=== PATIENT | female | born 1985 | race Caucasian/White ===

== ENCOUNTER 2017-02-09 10:19 | Emergency (ER) | payer OTHER ==
[2017-02-09 10:28] VITALS: O2SAT 100
[2017-02-09] MEDS ORDERED: Sodium Chloride 0.9% 1,000 ML IV ONE (10:49)
[2017-02-09] MEDS ORDERED: Sodium Chloride 0.9% 1,000 ML ONE ×2 (10:58→11:02)
[2017-02-09 10:59] LABS: RBC URINE 1 /hpf (0-3); URINE BILIRUBIN NEGATIVE (NEGATIVE); URINE BLOOD NEGATIVE (NEGATIVE); URINE COLOR Yellow (YELLOW); URINE GLUCOSE (UA) NORMAL (Normal); URINE KETONE NEGATIVE (NEGATIVE); URINE LEUKOCYTE ESTERASE NEG Leu/uL (Negative); URINE PROTEIN NEGATIVE (NEGATIVE); URINE UROBILINOGEN NORMAL mg/dL (0.2-1.0); WBC URINE 1 /hpf (0-5)
--- NOTE | 2017-02-09 11:03 | C.PDOC ---
History Of Present Illness Patient is a 31 year old female, with no significant past medical history, A1, presents to Emergency Department for evaluation of lower abdominal pain for the past several months. As per , patient has had the abdominal pain intermittently since the miscarriage in July this year. Patient states that pain is worse on right side since yesterday. Denies nausea, vomiting, diarrhea, vaginal discharge, dysuria, hematuria, or fever. Time Seen by Provider: 02/09/17 10:43 Chief Complaint (Nursing): Abdominal Pain History Per: Patient History/Exam Limitations: no limitations Onset/Duration Of Symptoms: Days Current Symptoms Are (Timing): Still Present Location Of Pain/Discomfort: Suprapubic Radiation Of Pain To:: None Quality Of Discomfort: "Pain" Associated Symptoms: denies: Loss Of Appetite, Back Pain, Chest Pain, Urinary Symptoms Exacerbating Factors: None Alleviating Factors: None Last Bowel Movement: Yesterday Recent travel outside of the [place]: No Additional History Per: Patient Abnormal Vaginal Bleeding: No Last Menstral Period: 01/19/2017 Past Medical History Reviewed: Historical Data, Nursing Documentation, Vital Signs Vital Signs: Last Vital Signs Temp 98 F 02/09/17 12:50 Pulse 80 02/09/17 12:50 Resp 16 02/09/17 12:50 BP 101/62 02/09/17 12:50 Pulse Ox 100 02/09/17 15:38 - Medical History PMH: No Chronic Diseases Family History: States: Unknown Family Hx - Social History Hx Alcohol Use: No Hx Substance Use: No - Immunization History Hx Tetanus Toxoid Vaccination: No Hx Influenza Vaccination: No Hx Pneumococcal Vaccination: No Review Of Systems Except As Marked, All Systems Reviewed And Found Negative. Constitutional: Negative for: Fever, Chills Cardiovascular: Negative for: Chest Pain, Palpitations Respiratory: Negative for: Shortness of Breath Gastrointestinal: Positive for: Abdominal Pain. Negative for: Nausea, Vomiting , Diarrhea Genitourinary: Negative for: Dysuria, Frequency, Hematuria, Vaginal Discharge, Vaginal Bleeding Musculoskeletal: Negative for: Back Pain Neurological: Negative for: Headache, Dizziness Physical Exam - Physical Exam Appears: Non-toxic, No Acute Distress Skin: Normal Color, Warm, Dry Head: Atraumatic, Normacephalic Eye(s): bilateral: Normal Inspection Oral Mucosa: Moist Neck: Normal ROM, Supple Chest: Symmetrical Cardiovascular: Rhythm Regular, No Murmur Respiratory: Normal Breath Sounds, No Rales, No Rhonchi, No Wheezing Gastrointestinal/Abdominal: Bowel Sounds (normal), Soft, Tenderness (suprapubic , right side more than left), No Organomegaly, No Mass, No Distention, No Guarding, No Rebound Back: Normal Inspection, No CVA Tenderness Extremity: Bilateral: Atraumatic, Normal ROM Neurological/Psych: Oriented x3, Normal Speech Gait: Steady ED Course And Treatment - Laboratory Results Result Diagrams: 02/09/17 11:10 02/09/17 11:10 Lab Interpretation: No Acute Changes O2 Sat by Pulse Oximetry: 100 (RA) Pulse Ox Interpretation: Normal - CT Scan/US Pelvis/Transvag US Other Rad Studies (CT/US): Read By Radiologist, Radiology Report Reviewed CT/US Interpretation: Accession No. : [id number]. Patient Name / ID : SINDY ROBBINS / [id number]. Exam Date : 02/09/2017 11:44:43 ( Approved ). Study Comment : Sex / Age : F / 31Y. Creator : Cory Jacobo MD. Dictator : Cory Jacobo MD. Saturation Equipment Operator : Mental Retardation Aide : Cory Jacobo MD. Approver2 : Report Date : 02/09/2017 12:46:53. My Comment : . Pelvic ultrasound. History: Pelvic pain. Comparison: None available. Technique: Real-time sonography was performed through the pelvis utilizing transabdominal and transvaginal technique. Findings: Uterus: 9.9 x 4.4 x 5.9 centimeters. Anteverted. Heterogeneous echotexture. Endometrium measures 1.2 centimeters, within normal limits. Small amount of free fluid within the pelvic cul-de-sac. Right ovary: 2.8 x 2.6 x 3.5 centimeters. Normal flow. Left ovary: Not well visualized. Urine HCG was negative. Impression: Left ovary not well visualized. Small amount of free fluid within the pelvic cul-de- sac. Medical Decision Making Medical Decision Making: Plan: * Blood work * Urinalysis * Plevis Ultrasound * Tylenol * IV fluids Progress note: Labs reviewed with no acute findings. US showed no acute findings. Reassess and dispo: Patient is resting comfortably, no acute distress. Abdomen remains soft, no longer tender. Pt reports feeling better, with improvement of pain. Discussed results with patient, and copy of report were provided. Patient given follow up instructions with screen printing press operator and PCP. Instructed to return to ER if symptoms worsen or new symptoms arise. Disposition Counseled Patient/Family Regarding: Studies Performed, Diagnosis, Need For Followup - Disposition [facility] Disposition: HOME/ ROUTINE Disposition Time: 13:08 Condition: GOOD Additional Instructions: Thank you for letting us take care of you today. Your provider was KRISTIAN Drake. You were treated for pelvic pain. The emergency medical care you received today was directed at your acute symptoms. You have been procided copy of lab results and US report. Take Tylenol or Advil for any pain you may have. It may take several days for your symptoms to resolve. Return to the Emergency Department if your symptoms worsen, do not improve, or if you have any other problems. Please contact your doctor or call one of the physicians/clinics for further evaluation. Bring any paperwork you were given at discharge with you along with any medications you are taking to your follow up visit. Our treatment cannot replace ongoing medical care by a primary care provider (PCP) outside of the emergency department. Thank you for allowing the [facility] team to be part of your care today. Instructions: Pelvic Pain in Women (ED) Forms: [employer] (Luxembourgish) - POA Present On Arrival: None - Clinical Impression Clinical Impression: Pelvic pain - PA / CORROSION TECHNICIAN / Resident Statement MD/DO has reviewed & agrees with the documentation as recorded. - Scribe Statement The provider has reviewed the documentation as recorded by the Luisa Crane All medical record entries made by the Scribe were at my direction and personally dictated by me. I have reviewed the chart and agree that the record accurately reflects my personal performance of the history, physical exam, medical decision making, and the department course for this patient. I have also personally directed, reviewed, and agree with the discharge instructions and disposition.
[2017-02-09 11:15] LABS: BASO % 0.5 % (0.0-2.0); EOS # 0.1 K/uL (0.0-0.7); HEMATOCRIT 36.9 % (34.0-47.0); LYMPH # 1.6 K/uL (1.0-4.3); LYMPH % 25.9 % (20.0-40.0); MEAN CELL VOLUME 90.4 fL (81.0-99.0); MEAN CORPUSCULAR HEMOGLOBIN 31.3 pg (27.0-31.0); MEAN CORPUSCULAR HGB CONC 34.6 g/dL (33.0-37.0); MONO # 0.5 K/uL (0.0-0.8); MONO % 7.7 % (0.0-10.0); NRBC % 0.1 % (0.0-2.0); WHITE BLOOD COUNT 6.3 K/uL (4.8-10.8)
[2017-02-09 11:23] LABS: CHLORIDE 101 mmol/L (98-107); POTASSIUM 4.1 mmol/L (3.6-5.2); SODIUM 136 mmol/L (132-148)
[2017-02-09 11:25] LABS: BILIRUBIN,TOTAL 0.6 mg/dL (0.2-1.3); GFR AFRICAN-AMERICAN > 60
[2017-02-09 11:26] LABS: ALB/GLOB RATIO 1.3 (1.0-2.1); ALKALINE PHOSPHATASE 34 U/L (38-126); ALT/SGPT 23 U/L (9-52); AST/SGOT 19 U/L (14-36); BLOOD UREA NITROGEN 11 mg/dL (7-17); CARBON DIOXIDE 23 mmol/L (22-30); GLUCOSE,RANDOM 68 mg/dL (65-105); TOTAL PROTEIN 8.1 g/dL (6.3-8.3)
--- NOTE | 2017-02-09 12:48 | US ---
Pelvic ultrasound History: Pelvic pain. Comparison: None available. Technique: Real-time sonography was performed through the pelvis utilizing transabdominal and transvaginal technique. Findings: Uterus: 9.9 x 4.4 x 5.9 centimeters. Anteverted. Heterogeneous echotexture. Endometrium measures 1.2 centimeters, within normal limits. Small amount of free fluid within the pelvic cul-de-sac. Right ovary: 2.8 x 2.6 x 3.5 centimeters. Normal flow. Left ovary: Not well visualized. Urine HCG was negative. Impression: Left ovary not well visualized. Small amount of free fluid within the pelvic cul-de-sac.
[2017-02-09 13:21] VITALS: BP 101/62; PULSE 80; RESP 16; TEMP 98
== END 2017-02-09 12:50 | disposition home or self-care (01) ==
LOC: C.ER 10:19
DX: R10.2 Pelvic and perineal pain (principal)
CPT/HCPCS: 76830; 76856; 80053; 81001; 84703; 85025; 96360; 99284; J7040

== ENCOUNTER 2017-02-27 17:34 | Emergency (ER) | payer SELFPAY ==
[2017-02-27 17:42] VITALS: TEMP 97.2; O2SAT 98
--- NOTE | 2017-02-27 17:59 | C.PDOC ---
History Of Present Illness 31 y/o female newly , return for repeat beta and US. Patient was seen here 2 days ago for and vaginal spotting. Patient reports no pain today, but is till spotting. No fever or chills. No urinary symptoms. Time Seen by Provider: 02/27/17 17:44 Chief Complaint (Nursing): Medical Clearance History Per: Patient History/Exam Limitations: no limitations Onset/Duration Of Symptoms: Days Current Symptoms Are (Timing): Still Present Severity: Mild Associated Symptoms: denies: Urinary Symptoms Additional History Per: Patient Abnormal Vaginal Bleeding: Yes Past Medical History Reviewed: Historical Data, Nursing Documentation, Vital Signs Vital Signs: Last Vital Signs Temp 97.2 F L 02/27/17 17:38 Pulse 64 02/27/17 19:45 Resp 18 02/27/17 19:45 BP 100/61 02/27/17 19:45 Pulse Ox 98 02/27/17 20:27 Family History: States: Unknown Family Hx - Social History Hx Alcohol Use: No Hx Substance Use: No - Immunization History Hx Tetanus Toxoid Vaccination: No Hx Influenza Vaccination: No Hx Pneumococcal Vaccination: No Review Of Systems Except As Marked, All Systems Reviewed And Found Negative. Constitutional: Negative for: Fever, Chills Genitourinary: Positive for: Vaginal Bleeding. Negative for: Dysuria, Hematuria Physical Exam - Physical Exam Appears: Non-toxic, No Acute Distress Skin: Warm, Dry Head: Atraumatic, Normacephalic Cardiovascular: Rhythm Regular, No Murmur Respiratory: Normal Breath Sounds, No Rales, No Rhonchi, No Wheezing Gastrointestinal/Abdominal: Soft, No Tenderness Back: No CVA Tenderness Neurological/Psych: Oriented x3 ED Course And Treatment O2 Sat by Pulse Oximetry: 98 Pulse Ox Interpretation: Normal - CT Scan/US US Transvaginal Other Rad Studies (CT/US): Interpreted By Me, Read By Radiologist CT/US Interpretation: . Ultrasound. . . TRANSVAGINAL Exam Date: 02/27/17. . This imaging exam was performed at [facility]. EXAM: US , Transvaginal. . CLINICAL HISTORY: 31 years old, female; Pain; Pelvic pain; Patient HX: Decreasing bhcg, ;. additional info : , r. O ectopic. . TECHNIQUE: Real-time transvaginal obstetrical ultrasound of the maternal pelvis and a. first trimester with image documentation. Transvaginal imaging was. used for better evaluation of the fetus and adnexa. . COMPARISON: US - TRANSVAGINAL 2017-02-25 12:42. . FINDINGS: Gestation: No intrauterine gestational sac. Uterus/cervix: 1.4 x 1.1 x 1.2 cm lower uterine mass. Endometrium: 0.4 cm. in thickness. Closed cervix. Ovaries: Normal ovaries. No adnexal masses. Free fluid: No significant free fluid. . IMPRESSION: 1. No intrauterine gestation. DDX: Early IUP, missed , ectopic. . 2. Probable fibroid. Medical Decision Making Medical Decision Making: Impression: , vaginal spotting Plan: * Labs * US Prior record reviewed 02/25 BHCG was 62.9 and US shows no gestational sac, cannot exclude ectopic. Progress: BHCG today is 23 US shows no intrauterine gestation. DDX: Early IUP, missed , ectopic . Patient given copy of US report and lab findings Patient instructed to follow up with gerontology aide Disposition Counseled Patient/Family Regarding: Diagnosis, Need For Followup - Disposition Referrals: [facility] [Outside] Disposition: HOME/ ROUTINE Disposition Time: 20:01 Condition: STABLE Additional Instructions: Please follow up with your gerontology aide for further evaluation Instructions: Spontaneous Miscarriage (ED) Forms: [facility] (Cuban) - POA Present On Arrival: None - Clinical Impression Clinical Impression: Spontaneous - Scribe Statement The provider has reviewed the documentation as recorded by the Scribe Linda loaiza All medical record entries made by the Scribe were at my direction and personally dictated by me. I have reviewed the chart and agree that the record accurately reflects my personal performance of the history, physical exam, medical decision making, and the department course for this patient. I have also personally directed, reviewed, and agree with the discharge instructions and disposition.
--- NOTE | 2017-02-27 19:54 | US ---
EXAM: US , Transvaginal CLINICAL HISTORY: 31 years old, female; Pain; Pelvic pain; Patient HX: Decreasing bhcg, ; additional info: , r. O ectopic TECHNIQUE: Real-time transvaginal obstetrical ultrasound of the maternal pelvis and a first trimester with image documentation. Transvaginal imaging was used for better evaluation of the fetus and adnexa. COMPARISON: US - TRANSVAGINAL 2017-02-25 12:42 FINDINGS: Gestation: No intrauterine gestational sac. Uterus/cervix: 1.4 x 1.1 x 1.2 cm lower uterine mass. Endometrium: 0.4 cm in thickness. Closed cervix. Ovaries: Normal ovaries. No adnexal masses. Free fluid: No significant free fluid. IMPRESSION: 1. No intrauterine gestation. DDX: Early IUP, missed , ectopic . 2. Probable fibroid.
[2017-02-27 20:08] VITALS: BP 100/61; PULSE 64; RESP 18
== END 2017-02-27 20:08 | disposition home or self-care (01) ==
LOC: C.ER 17:34
DX: O03.9 Complete or unspecified spontaneous abortion without complication (principal)

== ENCOUNTER 2017-03-31 23:31 | Inpatient (IN) | payer OTHER ==
[2017-03-31] MEDS ORDERED: Sodium Chloride 0.9% 1,000 ML IV ONE (23:57)
--- NOTE | 2017-03-31 23:57 | C.PDOC ---
History Of Present Illness The patient presents to the ED for evaluation of diffuse abdominal pain which began today. Patient underwent a miscarriage around 3-4 weeks ago and reports some vaginal bleeding. Patient has not started her menstrual period yet. Patient denies fever, chills. Time Seen by Provider: 03/31/17 23:57 Chief Complaint (Nursing): Abdominal Pain History Per: Patient History/Exam Limitations: no limitations Onset/Duration Of Symptoms: Hrs Current Symptoms Are (Timing): Still Present Severity: Mild Pain Scale Rating Of: 2 Location Of Pain/Discomfort: LLQ Radiation Of Pain To:: None Quality Of Discomfort: Dull, Aching, Pressure, "Pain" Associated Symptoms: denies: Fever, Chills Exacerbating Factors: None Alleviating Factors: None Last Bowel Movement: Today Recent travel outside of the [place]: No Additional History Per: Patient Abnormal Vaginal Bleeding: Yes Past Medical History Reviewed: Historical Data, Nursing Documentation, Vital Signs Vital Signs: Last Vital Signs Temp 97.7 F 04/01/17 02:28 Pulse 66 04/01/17 02:28 Resp 16 04/01/17 02:28 BP 99/66 L 04/01/17 02:28 Pulse Ox 97 04/01/17 03:06 - Medical History PMH: No Chronic Diseases Surgical History: No Surg Hx Family History: States: Unknown Family Hx - Social History Hx Alcohol Use: No Hx Substance Use: No - Immunization History Hx Tetanus Toxoid Vaccination: No Hx Influenza Vaccination: No Hx Pneumococcal Vaccination: No Review Of Systems Constitutional: Negative for: Fever, Chills Cardiovascular: Negative for: Chest Pain, Palpitations Respiratory: Negative for: Cough, Shortness of Breath Gastrointestinal: Positive for: Abdominal Pain (diffuse). Negative for: Nausea , Vomiting Genitourinary: Positive for: Vaginal Bleeding Skin: Negative for: Rash, Lesions, Jaundice, Bruising Neurological: Negative for: Weakness, Numbness Physical Exam - Physical Exam Appears: Non-toxic, No Acute Distress Skin: Warm, Dry Head: Normacephalic Eye(s): bilateral: Normal Inspection Oral Mucosa: Moist Neck: Supple Chest: Symmetrical, No Deformity, No Tenderness Cardiovascular: Rhythm Regular, No Murmur Respiratory: Normal Breath Sounds, No Rales, No Rhonchi, No Wheezing Gastrointestinal/Abdominal: Soft, Tenderness (llq), No Distention, No Guarding, No Rebound Back: No CVA Tenderness Extremity: Normal ROM, Capillary Refill (less than 2 seconds ) Extremity: Bilateral: Atraumatic Pulses: Left Dorsalis Pedis: Normal, Right Dorsalis Pedis: Normal Neurological/Psych: Oriented x3, Normal Speech, Normal Cognition Gait: Steady ED Course And Treatment - Laboratory Results Result Diagrams: 04/01/17 00:25 04/01/17 00:25 O2 Sat by Pulse Oximetry: 97 (on RA ) Pulse Ox Interpretation: Normal - CT Scan/US US , transvaginal Other Rad Studies (CT/US): Interpreted By Me, Read By Radiologist, Radiology Report Reviewed CT/US Interpretation: EXAM: US , Transvaginal. CLINICAL HISTORY: 31 years old, female; Pain; Pelvic pain; Patient HX: Bhcg 786.37, . on 02/27/17 bhcg was 23.89;. Additional info: S/P miscarriage, poss rpc. TECHNIQUE: Real- time transvaginal obstetrical ultrasound of the maternal pelvis and a first trimester . with image documentation. Transvaginal imaging was used for better evaluation of the fetus and. adnexa.Grayscale, color and spectral pulse Doppler images are submitted.A duplex/doppler. ultrasound was performed specifically BOTH COLOR FLOW AND spectral Doppler analysis. (waveforms) were performed and interpreted. COMPARISON: US - TRANSVAGINAL 2017-02-27 18:46. FINDINGS: Beta-hCG level: Beta-hCG 786.37. On March 29, 2017 the beta-hCG was 23.89. Gestation: There is a left adnexal mass measuring 5.1 x 2.6 x 4.8 cm suspicious for ruptured ectopic. versus hematoma secondary to ectopic . The endometrial stripe measures 10. mm with increased vascularity. No IUP is seen. Uterus/cervix: There is trace fluid in the endocervical canal. There is lower uterine segment fibroid. measuring 1.3 x 1.0 x 1.1 cm. The anteverted uterus measures 8.7 x 4.7 x 6.6 cm. Ovaries: There is right ovarian corpus luteum measuring 2.0 x 2.1 x 2.1 cm The right ovary. measures 3.7 x 2.3 x 2.9 cm. Duplex assessment demonstrates presence of color Doppler signal. and spectral Doppler waveform in right ovary. Duplex assessment demonstrates presence of color Doppler signal and spectral Doppler waveform in right ovary. The left ovary measures 2.9 x 2.7 x 2.0. cm. Free fluid: Moderate amount of complex free pelvic fluid/blood. Close clinical surveillance of. patient's hemodynamic status is recommended. No fluid is noted in the Dumont's pouch. No right. hydronephrosis. IMPRESSION: 1. There is a left adnexal mass measuring 5.1 x 2.6 x 4.8 cm suspicious for ruptured ectopic. versus hematoma secondary to ectopic . 2. Moderate amount of complex free pelvic fluid/blood. Close clinical surveillance of patient's. hemodynamic status is recommended. 3. There is right ovarian corpus luteum measuring 2.0 x 2.1 x 2.1 cm . Progress Note: Bloodwork, urinalysis, and transvaginal US ordered and reviewed. Morphine IVP, Zofran IVP, and IV Fluids administered. 2:56am spoke with dr christy, liquor bridge operator - will come and see the pt in the ed. is aware of the us findings. spoke with the pt and her (hipaa complin=ant) re: the us findings Critical Care Time - Critical Care Note Total Time (in mins): 30 Documented critical care: time excludes all time spent performing seperately billable procedures. Disposition Discussed With : Idania Christy Comment: accepted the pt on her service and took over the care at 3:30 AM Doctor Will See Patient In The: ED Counseled Patient/Family Regarding: Studies Performed, Diagnosis - Disposition Disposition: HOSPITALIZED Disposition Time: 23:57 Condition: GUARDED Forms: [facility] (Japanese) - POA Present On Arrival: None - Clinical Impression Clinical Impression: Ruptured ectopic - Scribe Statement The provider has reviewed the documentation as recorded by the Scribe (Flores Crane) Provider Attestation: All medical record entries made by the Scribe were at my direction and personally dictated by me. I have reviewed the chart and agree that the record accurately reflects my personal performance of the history, physical exam, medical decision making, and the department course for this patient. I have also personally directed, reviewed, and agree with the discharge instructions and disposition. Decision To Admit - Pt Status Changed To: Hospital Disposition Of: Inpatient - Admit Certification Admit to Inpatient:: After my assessment, the patient will require hospitalization for at least two midnights. This is because of the severity of symptoms shown, intensity of services needed, and/or the medical risk in this patient being treated as an outpatient. - InPatient: Physician Admission Certification:: After my assessment, the patient will require hospitalization for at least two midnights. This is because of the severity of symptoms shown, intensity of services needed, and/or the medical risk in this patient being treated as an outpatient. - . Bed Request Type: Regular Admitting Physician: Idania A Westley Patient Diagnosis: Ruptured ectopic
[2017-04-01] MEDS ORDERED: Sodium Chloride 0.9% 1,000 ML ONE (00:33)
[2017-04-01 00:41] LABS: BASO % 0.3 % (0.0-2.0); EOS # 0.1 K/uL (0.0-0.7); EOS % 1.3 % (0.0-4.0); HEMATOCRIT 36.1 % (34.0-47.0); LYMPH # 2.1 K/uL (1.0-4.3); LYMPH % 24.5 % (20.0-40.0); MEAN CELL VOLUME 91.7 fL (81.0-99.0); MEAN CORPUSCULAR HEMOGLOBIN 30.4 pg (27.0-31.0); MEAN CORPUSCULAR HGB CONC 33.1 g/dL (33.0-37.0); MEAN PLATELET VOLUME 10.2 fL (7.2-11.7); MONO # 0.6 K/uL (0.0-0.8); MONO % 7.1 % (0.0-10.0); NRBC % 0.1 % (0.0-2.0); WHITE BLOOD COUNT 8.4 K/uL (4.8-10.8)
[2017-04-01 00:46] LABS: RBC URINE 11 /hpf (0-3); URINE BACTERIA RARE (<OCC); URINE BILIRUBIN NEGATIVE (NEGATIVE); URINE BLOOD 3+ (NEGATIVE); URINE COLOR Yellow (YELLOW); URINE GLUCOSE (UA) NORMAL (Normal); URINE KETONE TRACE mg/dL (NEGATIVE); URINE LEUKOCYTE ESTERASE NEG Leu/uL (Negative); URINE PROTEIN 1+ mg/dL (NEGATIVE); URINE UROBILINOGEN NORMAL mg/dL (0.2-1.0); WBC URINE 3 /hpf (0-5)
[2017-04-01 00:52] LABS: ALB/GLOB RATIO 1.1 (1.0-2.1); ALKALINE PHOSPHATASE 42 U/L (38-126); ALT/SGPT 34 U/L (9-52); AST/SGOT 18 U/L (14-36); BILIRUBIN,TOTAL 0.3 mg/dL (0.2-1.3); BLOOD UREA NITROGEN 12 mg/dL (7-17); CALCIUM 8.6 mg/dl (8.6-10.4); CARBON DIOXIDE 27 mmol/L (22-30); CHLORIDE 105 mmol/L (98-107); GFR AFRICAN-AMERICAN > 60; GLUCOSE,RANDOM 105 mg/dL (65-105); POTASSIUM 3.5 mmol/L (3.6-5.2); SODIUM 138 mmol/L (132-148); TOTAL PROTEIN 8.1 g/dL (6.3-8.3)
--- NOTE | 2017-04-01 02:52 | US ---
EXAM: US , Transvaginal CLINICAL HISTORY: 31 years old, female; Pain; Pelvic pain; Patient HX: Bhcg 786.37, . on 02/27/17 bhcg was 23.89; Additional info: S/P miscarriage, poss rpc TECHNIQUE: Real-time transvaginal obstetrical ultrasound of the maternal pelvis and a first trimester with image documentation. Transvaginal imaging was used for better evaluation of the fetus and adnexa.Grayscale, color and spectral pulse Doppler images are submitted.A duplex/doppler ultrasound was performed specifically BOTH COLOR FLOW AND spectral Doppler analysis (waveforms) were performed and interpreted. COMPARISON: US - TRANSVAGINAL 2017-02-27 18:46 FINDINGS: Beta-hCG level: Beta-hCG 786.37. On March 29, 2017 the beta-hCG was 23.89. Gestation: There is a left adnexal mass measuring 5.1 x 2.6 x 4.8 cm suspicious for ruptured ectopic versus hematoma secondary to ectopic . The endometrial stripe measures 10 mm with increased vascularity. No IUP is seen. Uterus/cervix: There is trace fluid in the endocervical canal. There is lower uterine segment fibroid measuring 1.3 x 1.0 x 1.1 cm. The anteverted uterus measures 8.7 x 4.7 x 6.6 cm. Ovaries: There is right ovarian corpus luteum measuring 2.0 x 2.1 x 2.1 cm The right ovary measures 3.7 x 2.3 x 2.9 cm. Duplex assessment demonstrates presence of color Doppler signal and spectral Doppler waveform in right ovary. Duplex assessment demonstrates presence of color Doppler signal and spectral Doppler waveform in right ovary. The left ovary measures 2.9 x 2.7 x 2.0 cm. Free fluid: Moderate amount of complex free pelvic fluid/blood. Close clinical surveillance of patient's hemodynamic status is recommended. No fluid is noted in the Dumont's pouch. No right hydronephrosis. IMPRESSION: 1. There is a left adnexal mass measuring 5.1 x 2.6 x 4.8 cm suspicious for ruptured ectopic versus hematoma secondary to ectopic . 2. Moderate amount of complex free pelvic fluid/blood. Close clinical surveillance of patient's hemodynamic status is recommended. 3. There is right ovarian corpus luteum measuring 2.0 x 2.1 x 2.1 cm .
[2017-04-01] MEDS ORDERED: Sodium Chloride 0.9% 1,000 ML IV ONE (03:12)
[2017-04-01] MEDS ORDERED: cefOXitin IV 2 gm in Dextrose 2 GM/50 ML BAG IVPB ONE (04:56)
--- NOTE | 2017-04-01 04:58 | CP.PCM.HP ---
History of Present Illness - History of Present Illness History of Present Illness: Patient speaks predominantly Kiswahili. For the initial interview with obtaining history, served as bait tier. For obtaining consent for surgery and discussion of benefits, risks, complications, 3CId translating device was used, in conjunction with [place] [id number]. Patient received in cubicle#7 on stretcher, in NAD. at her side. Patient is awake, alert, oriented to time, person and place. Appears well nourished; not pale. 31 y.o. , LMP 01/2017. Patient is S/P second spontaneous , presents with c/o sudden onset of sharp, piercing LLQ pain, 03/31/17 approximately 1700 hours. Patient thought it was the beginning of her regular menses; took pain medications (suppository from [facility]). With minimal relief and continued pain at a scale of 9/10, came to E.D. at approximately 2300 hours for further evaluation. Also, light vaginal bleeding, onset In the E.D. patient received morphine IVPB, pain scale now 3/10. As a result of work up in the E.D., ultrasound findings suspicious for possible ruptured left ectopic with a left adnexal mass measuring 5.1 x 2.6 x 4.8 cm, and moderate amount of "complex free pelvic fluid/blood". Patient hence counseled for possible ectopic and the recommended surgical management of the same. 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 Denies h/o STIs (Patient's explained patient had unclear surgery on her cervix ..."they cut away too much") PMH: denies PSH: denies NKDA Meds:None Soc Hx: denies tobacco, illicit drug or EtOH use. Just 05/2016. Lives with . Unemployed. Fam Hx: Mother alive 59 - renal disease on dialysis. Father alive 66 - no med issues. No known fam h/o cancer Present on Admission - Present on Admission Any Indicators Present on Admission: No Review of Systems - Review of Systems All systems: reviewed and no additional remarkable complaints except - Gastrointestinal Gastrointestinal: Abdominal Pain - Reproductive: Female Reproductive:Female: As Per HPI Past Patient History - Infectious Disease Hx of Infectious Diseases: None - Past Medical History & Family History Past Medical History?: No Pertinent Family History: Mother - renal disease - Past Social History Smoking Status: Never Smoked Chewing Tobacco Use: No Alcohol: None Drugs: Denies Home Situation {Lives}: With Family () - CARDIAC Hx Cardiac Disorders: No - PULMONARY Hx Respiratory Disorders: No - NEUROLOGICAL Hx Neurological Disorder: No - HEENT Hx HEENT Problems: No - RENAL Hx Chronic Kidney Disease: No - ENDOCRINE/METABOLIC Hx Endocrine Disorders: No - HEMATOLOGICAL/ONCOLOGICAL Hx Blood Disorders: No - INTEGUMENTARY Hx Dermatological Problems: No - MUSCULOSKELETAL/RHEUMATOLOGICAL Hx Musculoskeletal Disorders: No - GASTROINTESTINAL Hx Gastrointestinal Disorders: No - GENITOURINARY/GYNECOLOGICAL Hx Genitourinary Disorders: No : 3 Para: 0 Termination of : 2 - PSYCHIATRIC Hx Psychophysiologic Disorder: No Hx Substance Use: No - SURGICAL HISTORY Hx Surgeries: No - ANESTHESIA Hx Anesthesia: No Meds Home Medications: Home Medication List Medication Instructions Recorded Confirmed Type Ibuprofen [Motrin] 600 mg PO Q6H PRN #30 tab 04/02/17 Rx Allergies/Adverse Reactions: Allergies Allergy/AdvReac Type Severity Reaction Status Date / Time No Known Allergies Allergy Verified 03/31/17 23:39 Physical Exam - Constitutional Appears: Well, No Acute Distress - Head Exam Head Exam: NORMAL INSPECTION - Eye Exam Eye Exam: Normal appearance - ENT Exam ENT Exam: Mucous Membranes Moist - Neck Exam Neck exam: Positive for: Full Rom - Cardiovascular Exam Cardiovascular Exam: REGULAR RHYTHM - GI/Abdominal Exam GI & Abdominal Exam: Soft (Bimanual exam deferred to the O.R.) - Extremities Exam Extremities exam: Positive for: full ROM, normal inspection - Back Exam Back exam: NORMAL INSPECTION - Neurological Exam Neurological exam: Alert, Oriented x3 - Psychiatric Exam Psychiatric exam: Normal Affect, Normal Mood - Skin Skin Exam: Dry, Intact, Normal Color, Warm Results - Vital Signs Recent Vital Signs: Last Vital Signs Temp 98.3 F 04/01/17 04:57 Pulse 81 04/01/17 04:57 Resp 16 04/01/17 04:57 BP 106/69 04/01/17 04:57 Pulse Ox 99 04/01/17 04:57 - Labs Result Diagrams: 04/01/17 00:25 04/01/17 00:25 Labs: Laboratory Results - last 24 hr 04/01/17 04/01/17 04/01/17 00:25 00:25 00:25 WBC 8.4 RBC 3.94 Hgb 12.0 Hct 36.1 MCV 91.7 MCH 30.4 MCHC 33.1 RDW 13.0 Plt Count 210 MPV 10.2 Neut % (Auto) 66.8 Lymph % (Auto) 24.5 [place] % (Auto) 7.1 Eos % (Auto) 1.3 Baso % (Auto) 0.3 Neut # 5.6 Lymph # 2.1 [place] # 0.6 Eos # 0.1 Baso # 0.0 PT 11.5 INR 1.0 APTT 36 H Sodium Potassium Chloride Carbon Dioxide Anion Gap BUN Creatinine Est GFR ( Amer) Est GFR (Non-Af Amer) Random Glucose Calcium Total Bilirubin AST ALT Alkaline Phosphatase Total Protein Albumin Globulin Albumin/Globulin Ratio Beta HCG, Quant Urine Color Yellow Urine Clarity Clear Urine pH 5.0 Ur Specific [place] 1.029 Urine Protein 1+ H Urine Glucose (UA) Normal Urine Ketones Trace Urine Blood 3+ H Urine Nitrate Negative Urine Bilirubin Negative Urine Urobilinogen Normal Ur Leukocyte Esterase Neg Urine WBC (Auto) 3 Urine RBC (Auto) 11 H Ur Squamous Epith Cells 7 H Urine Bacteria Rare Blood Type Antibody Screen 04/01/17 04/01/17 00:25 00:25 WBC RBC Hgb Hct MCV MCH MCHC RDW Plt Count MPV Neut % (Auto) Lymph % (Auto) [place] % (Auto) Eos % (Auto) Baso % (Auto) Neut # Lymph # [place] # Eos # Baso # PT INR APTT Sodium 138 Potassium 3.5 L Chloride 105 Carbon Dioxide 27 Anion Gap 9 L BUN 12 Creatinine 0.5 L Est GFR ( Amer) > 60 Est GFR (Non-Af Amer) > 60 Random Glucose 105 Calcium 8.6 Total Bilirubin 0.3 AST 18 ALT 34 Alkaline Phosphatase 42 Total Protein 8.1 Albumin 4.2 Globulin 3.9 Albumin/Globulin Ratio 1.1 Beta HCG, Quant 786.37 Urine Color Urine Clarity Urine pH Ur Specific [place] Urine Protein Urine Glucose (UA) Urine Ketones Urine Blood Urine Nitrate Urine Bilirubin Urine Urobilinogen Ur Leukocyte Esterase Urine WBC (Auto) Urine RBC (Auto) Ur Squamous Epith Cells Urine Bacteria Blood Type O POSITIVE Antibody Screen Negative Assessment & Plan - Assessment and Plan (Free Text) Assessment: 31 y.o P0020, probable ruptured (left) ectopic with possible hemoperitoneum. After a very lengthy discussion of management options including but not limited to why patient is not a candidate for chemotherapeutic agent methotrexate, and a discussion of increased risk of ectopic of 15% and up to 30% in subsequent pregnancies; after answering and addressing all of patient's questions and concerns, consents were signed for laparoscopy, possible laparotomy, possible salpingectomy, removal of all diseased tissues, repair of any damage to internal organs, possible blood transfusion. was present at all times. Patient has been NPO since before midnight, last ate 2000 hours, last drank tea 2200 hours. Patient is hemodynamically and clinically stable. Plan: 1) Admit to CELL TECHNICIAN 2) Maintain NPO 3) IVFs: LR at 125 mL/hr 4) call or contact centre coach to O.R. 5) Mefoxin 2 grams IVPB 6) Will place root in O.R. - Date & Time Date: 04/01/17 Time: 05:25
[2017-04-01] MEDS: Lactated Ringer's 1,000 ML IV SCH ×2 (05:19→14:23)
[2017-04-01] MEDS ORDERED: Succinylcholine Chloride 20 mg/ml Syr (5 ml) IV ONE (06:14)
[2017-04-01] MEDS ORDERED: Rocuronium 10 mg/ml (5 ml) ONE (06:14)
[2017-04-01] MEDS ORDERED: Propofol 10 mg/ml Inj (20 ML) ONE (06:14)
[2017-04-01] MEDS ORDERED: Midazolam 2 MG/2 ML VIAL ONE (06:14)
[2017-04-01] MEDS ORDERED: Lactated Ringer's 1,000 ML IV ONE ×2 (06:25→08:00)
[2017-04-01] MEDS ORDERED: Bupivacaine HCl 0.25% PF (10 ml) Inj ONE (08:06)
[2017-04-01] MEDS ORDERED: Neostigmine Methylsulfate 3mg/3ml Syringe IV ONE (08:13)
[2017-04-01] MEDS ORDERED: Oxycodone/Acetaminophen 5/325 mg Tab PO PRN (08:46)
[2017-04-01] MEDS ORDERED: HYDROmorphone 0.5 mg/0.5 ml ISec IVP PRN (08:47)
--- NOTE | 2017-04-01 08:49 | PCM.SURG1 ---
Surgeon's Initial Post Op Note - Surgeon's Notes Surgeon: Idania Christy MD Journeyman Pipe Welder: Dr. Denny: Nick Durand MD Type of Anesthesia: General Endo Anesthesia Administered By: Chucho Ward MD Pre-Operative Diagnosis: Left (ruptured) ectopic Operative Findings: Left ectopic , not ruptured. Normal uterus, normal right fallopian tube, normal ovaries bilaterally. 50 mL hemoperitoneum. Normal upper abdominal organs Post-Operative Diagnosis: (Intact) Left ectopic ; mild hemoperitoneum Operation Performed: Left salpingectomy Specimen/Specimens Removed: left fallopian with ectopic Estimated Blood Loss: EBL {In ML}: 100 (U.O. 600mL; 1300 mL LR) Blood Products Given: N/A Drains Used: No Drains Post-Op Condition: Good Date of Surgery/Procedure: 04/01/17 Time of Surgery/Procedure: 08:40
--- NOTE | 2017-04-01 14:27 | OP ---
PROCEDURE DATE: 04/01/2017 SURGEON: Idania Christy MD ELECTRONIC WARFARE OPERATOR: Nick Durand MD TYPE OF ANESTHESIA: General with endotracheal intubation. ANESTHESIA ADMINISTERED BY: Chucho Ward DO PREOPERATIVE DIAGNOSIS: Ruptured left ectopic . POSTOPERATIVE DIAGNOSIS: Left ectopic , unruptured with mild hemoperitoneum. OPERATIVE FINDINGS: Examination under anesthesia: anteverted uterus, 10 weeks , soft, mobile, no appreciable adnexal masses. Uterus sounded to 10cm. At laparoscopiy, left ectopic - dilated left fallopian tube from ampullary region to fimbriated end - intact, no active bleeding. Mild hemoperitoneum approximately 50 mL. Normal uterus, normal right fallopian tube, and normal ovaries bilaterally. Also, normal upper abdominal organs OPERATION PERFORMED: Laparoscopic left salpingectomy. SPECIMENS: Left fallopian tube with products of conception. ESTIMATED BLOOD LOSS: 100 mL. URINE OUTPUT: 600 mL. IV FLUIDS: 1300 mL of lactated Ringer's solution BLOOD PRODUCTS GIVEN: None. COMPLICATIONS: None. DESCRIPTION OF PROCEDURE: The patient was taken to the operating room after having obtained informed consent for the anticipated procedure. This included a discussion of benefits, risks and possible complications including but not limited to infection requiring antibiotics, hemorrhage requiring blood transfusion, repair of any damage to internal organs, possible conversion of laparoscopy to laparotomy, removal of all diseased tissue. Consents were dated, witnessed, signed and placed in the chart. Patient received 2 grams Mefoxin prior to arriving in the operating room. The patient was eventually transferred to the main operating room. Once in the operating room, on the table in the supine position, general anesthesia with endotracheal intubation was administered without incident. The patient was then repositioned into the dorsal lithotomy position and she was placed in Paul stirrups. The perineum and abdomen were prepped, and the patient was draped in the usual sterile fashion. A Portillo indwelling catheter had been inserted under sterile conditions prior to being transferred to the main OR. The lower blade of a bivalved speculum was placed in the posterior vaginal vault, and a Fonseca retractor was used to visualize the cervix which was grasped on its anterior lip using a single-toothed tenaculum. The uterus was dilated using Mc's mechanical dilators to allow the uterine sound; uterus sounded as above. The HUMI uterine manipulator was inserted without difficulty. Attention was then directed to the patient's abdomen. Using a scalpel, a stab wound was made in the infraumbilical fold. The Veress needle was inserted. Adequate placement was verified with no retrieval of blood, urine or feces. Pneumoperitoneum was created using 15 cm of water. The incision was extended to allow 5-mm port. The camera was inserted; visualization of abdominal organs confirmed placement. Pneumoperitoneum was reconnected. Under direct visualization, another site was created in the left lower quadrant with a 5 mm port. Using the blunt probe, the findings of the pelvic viscera were noted as above. The decision was then made to place a 12-mm port in the right lower quadrant, to allow the introduction of the ABNER which was used for subsequent removal of the tissue. After identifying the , the fallopian tube was grasped at its distal most end. The ABNER was used to excise the specimen by serial applications in the area of the avascular mesosalpinx. The entire left fallopian tube was removed to the level of its insertion. The specimen was placed in EndoCatch. Suction and irrigation with aspiration of the hemoperitoneum was performed. Hemostasis was assured. The specimen was removed under direct visualization, and the 12-mm port was closed using the Des-Stan closure device with 2-0 Vicryl. The remaining trocars were removed under direct visualization after the pneumoperitoneum was released, and again hemostasis was assured. Skin was re-approximated using 4-0 Monocryl in subcuticular fashion on the 3 ports, infraumbilical and right and left lower quadrants. Steri-Strips and dressings were applied; a pressure dressing was applied on the right lower quadrant port. Attention was then directed to the vagina. Under direct visualization, the HUMI uterine manipulator was removed. Oozing was noted on the cervix, at the tenaculum sites. Hemostasis was then assured using 2-0 chromic in 2 [id number] stitches, one on each side. All instruments were removed. The patient was repositioned in a supine manner and she was extubated without difficulty. She was transferred to the recovery room in stable condition. Dr. Nick Durand was present throughout the entire procedure, from beginning to end. His presence was necessary for : 1) adequate visualization of the operative field at all time: 2) the complete and safe removal of the specimen; and 3) assuring adequate hemostasis at all times. Idania MD Westley TERI
[2017-04-01 16:45] VITALS: RESP 20
[2017-04-02 00:17] VITALS: O2SAT 97
[2017-04-02 08:37] VITALS: BP 85/51; PULSE 74; TEMP 98.8
[2017-04-02] MEDS ORDERED: Influenza Vaccine 60 mcg/0.5 mL SYR (4YR UP) IM ONE (12:02)
--- NOTE | 2017-04-02 12:07 | CP.PCM.DIS ---
Provider - Provider Date of Admission: 04/01/17 03:51 Attending physician: Idania Christy MD Time Spent in preparation of Discharge (in minutes): 30 Hospital Course - Lab Results Lab Results: Most Recent Lab Values WBC 8.4 K/uL (4.8-10.8) 04/01/17 00:25 RBC 3.94 Mil/uL (3.80-5.20) 04/01/17 00:25 Hgb 12.0 g/dL (11.0-16.0) 04/01/17 00:25 Hct 36.1 % (34.0-47.0) 04/01/17 00:25 MCV 91.7 fL (81.0-99.0) 04/01/17 00:25 MCH 30.4 pg (27.0-31.0) 04/01/17 00:25 MCHC 33.1 g/dL (33.0-37.0) 04/01/17 00:25 RDW 13.0 % (11.5-14.5) 04/01/17 00:25 Plt Count 210 K/uL (130-400) 04/01/17 00:25 MPV 10.2 fL (7.2-11.7) 04/01/17 00:25 Neut % (Auto) 66.8 % (50.0-75.0) 04/01/17 00:25 Lymph % (Auto) 24.5 % (20.0-40.0) 04/01/17 00:25 [place] % (Auto) 7.1 % (0.0-10.0) 04/01/17 00:25 Eos % (Auto) 1.3 % (0.0-4.0) 04/01/17 00:25 Baso % (Auto) 0.3 % (0.0-2.0) 04/01/17 00:25 Neut # 5.6 K/uL (1.8-7.0) 04/01/17 00:25 Lymph # 2.1 K/uL (1.0-4.3) 04/01/17 00:25 [place] # 0.6 K/uL (0.0-0.8) 04/01/17 00:25 Eos # 0.1 K/uL (0.0-0.7) 04/01/17 00:25 Baso # 0.0 K/uL (0.0-0.2) 04/01/17 00:25 PT 11.5 SECONDS (9.7-12.2) 04/01/17 00:25 INR 1.0 04/01/17 00:25 APTT 36 SECONDS (21-34) H 04/01/17 00:25 Sodium 138 mmol/L (132-148) 04/01/17 00:25 Potassium 3.5 mmol/L (3.6-5.2) L 04/01/17 00:25 Chloride 105 mmol/L (98-107) 04/01/17 00:25 Carbon Dioxide 27 mmol/L (22-30) 04/01/17 00:25 Anion Gap 9 (10-20) L 04/01/17 00:25 BUN 12 mg/dL (7-17) 04/01/17 00:25 Creatinine 0.5 mg/dL (0.7-1.2) L 04/01/17 00:25 Est GFR ( Amer) > 60 04/01/17 00:25 Est GFR (Non-Af Amer) > 60 04/01/17 00:25 Random Glucose 105 mg/dL (65-105) 04/01/17 00:25 Calcium 8.6 mg/dl (8.6-10.4) 04/01/17 00:25 Total Bilirubin 0.3 mg/dL (0.2-1.3) 04/01/17 00:25 AST 18 U/L (14-36) 04/01/17 00:25 ALT 34 U/L (9-52) 04/01/17 00:25 Alkaline Phosphatase 42 U/L (38-126) 04/01/17 00:25 Total Protein 8.1 g/dL (6.3-8.3) 04/01/17 00:25 Albumin 4.2 g/dL (3.5-5.0) 04/01/17 00:25 Globulin 3.9 gm/dL (2.2-3.9) 04/01/17 00:25 Albumin/Globulin Ratio 1.1 (1.0-2.1) 04/01/17 00:25 Beta HCG, Quant 786.37 mIU/ML 04/01/17 00:25 Urine Color Yellow (YELLOW) 04/01/17 00:25 Urine Clarity Clear (Clear) 04/01/17 00:25 Urine pH 5.0 (5.0-8.0) 04/01/17 00:25 Ur Specific [place] 1.029 (1.003-1.030) 04/01/17 00:25 Urine Protein 1+ mg/dL (NEGATIVE) H 04/01/17 00:25 Urine Glucose (UA) Normal mg/dL (Normal) 04/01/17 00:25 Urine Ketones Trace mg/dL (NEGATIVE) 04/01/17 00:25 Urine Blood 3+ (NEGATIVE) H 04/01/17 00:25 Urine Nitrate Negative (NEGATIVE) 04/01/17 00:25 Urine Bilirubin Negative (NEGATIVE) 04/01/17 00:25 Urine Urobilinogen Normal mg/dL (0.2-1.0) 04/01/17 00:25 Ur Leukocyte Esterase Neg [place]/uL (Negative) 04/01/17 00:25 Urine WBC (Auto) 3 /hpf (0-5) 04/01/17 00:25 Urine RBC (Auto) 11 /hpf (0-3) H 04/01/17 00:25 Ur Squamous Epith Cells 7 /hpf (0-5) H 04/01/17 00:25 Urine Bacteria Rare (<OCC) 04/01/17 00:25 Blood Type O POSITIVE 04/01/17 00:25 Antibody Screen Negative 04/01/17 00:25 - Hospital Course Hospital Course: Patient is a 31 y.o. , LMP 01/2017. Patient is S/P second spontaneous 02/27/17, presents with c/o sudden onset of sharp, piercing LLQ pain, 03/31/17 approximately 1700 hours. Patient thought it was the beginning of her regular menses; Beta HCG was 786. Transvaginal ultrasound findings suspicious for possible ruptured left ectopic with a left adnexal mass measuring 5.1 x 2.6 x 4.8 cm, and moderate amount of "complex free pelvic fluid/blood". Patient hence counseled for possible ectopic and the recommended surgical management of the same. Patient was admitted for ruptured ectopic and taken to the OR. Underwent Laparscopic L salpingectomy. Please see operative note for findings. Patient tolerated the procedure well. On day of discharge, patient was doing well. Pain was controlled, ambulating and tolerating diet. Patient medically stable and clear for discharge. Prescription for Motrin given. Patient advised to follow up with [facility] within 2 weeks of discharge. All questions and concerns were addressed. Discharge Exam - Head Exam Head Exam: NORMAL INSPECTION - Eye Exam Eye Exam: EOMI, Normal appearance - Neck Exam Neck exam: Full Rom - Respiratory Exam Respiratory Exam: NORMAL BREATHING PATTERN - Cardiovascular Exam Cardiovascular Exam: REGULAR RHYTHM - GI/Abdominal Exam GI & Abdominal Exam: Soft, Tenderness (appropriate) Additional comments: Incisions c/d/i - Extremities Exam Extremities exam: normal inspection - Neurological Exam Neurological exam: Normal Gait - Psychiatric Exam Psychiatric exam: Normal Mood - Skin Skin Exam: Normal Color, Warm Discharge Plan - Discharge Medications Prescriptions: Ibuprofen [Motrin] 600 mg PO Q6H PRN #30 tab PRN Reason: Pain, Mild (1-3) - Follow Up Plan Condition: GUARDED Disposition: HOME/ ROUTINE Instructions: Ectopic (DC), Salpingectomy (DC) Additional Instructions: 1. Motrin prn pain 2. Pelvic rest x 4 weeks 3. F/U with [facility] in 2 weeks for incision check Referrals: Caesar Longo MD [Staff Provider] -
== END 2017-04-02 13:00 | disposition home or self-care (01) | DRG 378 ==
LOC: C.ER 23:31 → C.4M 04-01 03:51
PROVIDERS: ADMIT Obstetrics & Gynecology; ATTEND Obstetrics & Gynecology
PROC: 0W9G4ZZ Drainage of Peritoneal Cavity, Percutaneous Endoscopic Approach (ICD-10-PCS; 2017-04-01)
PROC: 0UT64ZZ Resection of Left Fallopian Tube, Percutaneous Endoscopic Approach (ICD-10-PCS; principal; 2017-04-01 05:00)
DX: O00.102 Left tubal pregnancy without intrauterine pregnancy (principal); K66.1 Hemoperitoneum; N85.4 Malposition of uterus